=== PATIENT | male | born 1955 | race Caucasian/White ===

== ENCOUNTER 2018-01-30 16:12 | Inpatient (IN) | payer OTHER ==
[2018-01-30] MEDS ORDERED: ZOLPIDEM TARTRATE 10 MG TABLET PO PRN (17:04)
[2018-01-30] MEDS ORDERED: ONDANSETRON 4 MG/2 ML VIAL IV PRN (17:04)
[2018-01-30] MEDS ORDERED: VANCOMYCIN/NS 1 gm 1 GM/250 ML BAG IV SCH (17:15)
[2018-01-30] MEDS ORDERED: D5W 1,000 ML IV SCH (18:00)
[2018-01-30] MEDS ORDERED: METOPROLOL TAR 50 MG TAB PO PRN (18:40)
--- NOTE | 2018-01-30 18:53 | RAD REPORT ---
EXAM DESCRIPTION: RAD - Chest Pa And Lat (2 Views) - 01/30/2018 5:59 pm CLINICAL HISTORY: Soft tissue abscess in the neck, preoperative examination COMPARISON: None. TECHNIQUE: PA and lateral views of the chest were obtained. FINDINGS: The lungs are clear. Heart size is normal and central vasculature is within normal limit s. No pleural effusion or pneumothorax seen. No acute bony finding noted. No aortic abnormality. IMPRESSION: No acute cardiopulmonary process.
[2018-01-30 19:04] VITALS: BMI 30.9
[2018-01-30 19:39] LABS: Absolute Lymphocytes (CBC) 2.1 K/uL (0.7-4.9); Absolute Monocytes 0.9 K/uL (0.1-1.3); Absolute Neutrophil 6.6 K/uL (1.8-8.0); Basophils % 0.4 % (0-1.3); Eosinophils % 0.6 % (0-4.4); Hematocrit 44.4 % (39.6-49.0); Lymphocytes % 21.5 % (15.3-44.8); MCH 30.5 pg (27.0-35.0); MCV 90.4 fL (80-100); MPV 9.4 fL (7.6-11.3); Monocytes % 9.1 % (3.3-12.3); RBC Red Blood Cell Count 4.91 M/uL (4.33-5.43)
[2018-01-30 19:40] LABS: Potassium 3.9 mEq/L (3.6-5.0)
[2018-01-30] MEDS: ACETAMINOPHEN 500 MG TAB PO PRN (19:44)
[2018-01-30 19:56] LABS: Urine Appearance CLEAR; Urine Bilirubin NEGATIVE (NEG); Urine Blood NEGATIVE (NEG); Urine Color YELLOW; Urine Glucose NEGATIVE (NEG); Urine Protein NEGATIVE (NEG); Urine Specific Gravity 1.025 (1.005-1.030); Urine Urobilinogen 0.2 mg/dL (0.2-1.0)
[2018-01-30 20:08] LABS: Urine Microscopic Reflex NO UMIC
[2018-01-30] MEDS: ZOLPIDEM TARTRATE 10 MG TABLET PO SCH (20:11)
[2018-01-30] MEDS: ATORVASTATIN 10 MG TAB PO SCH (20:11)
--- NOTE | 2018-01-30 20:19 | RAD REPORT ---
EXAM DESCRIPTION: US - Extremity Nonvascular Complete - 01/30/2018 5:49 pm CLINICAL HISTORY: Palpable mass left side of the neck COMPARISON: None. FINDINGS: Sonographic evaluation of the palpable mass demonstrates a 5 x 5 x 4 centimeter heterogene ous oval hypoechoic mass. The mass is suspicious for a large lymph node. Doppler evaluation shows lit tle if any internal blood flow. No thickened rim or rind to suggest abscess. IMPRESSION: Large 5 centimeter left neck mass suspicious for an abnormal lymph node. Lymphoma or other malignancy cannot be excluded. A necrotic inflammatory or infectious lymph node wou ld be possible. Abscess is not suspected. Aspiration or biopsy would likely be needed for definitive diagnosis.
[2018-01-31] MEDS: ACETAMINOPHEN 500 MG TAB PO PRN (01:53)
--- NOTE | 2018-01-31 04:49 | HP ---
Date of Admission: 01/30/2018 Entrance Complaint: Painful mass, neck. History Of Present Illness: The patient has had a very long history of a mass in the left lateral po rtion of his neck, which was felt to be a lipoma. A couple weeks ago, he started noticing some enlar gement. Over the past few days, it is considerably enlarged, hot, red, and was seen in the office an d a diagnosis of early abscess and/or cellulitis of the lesion was made and he was admitted for IV an tibiotic therapy. Past History: The patient is in good general health, has Lipitor for his hyperlipidemia, Lopressor f or his hypertension, both of which have been under good control. He also takes Humira on a weekly ba sis. He has done this for a number of years for a psoriatic condition, possible contributing factor to the change in character of the lesion. Social History: Nonsmoker and nondrinker. Family History: Noncontributory. Physical Examination: General: The patient is an alert, orientated male with stable vital signs. Head and Neck: Normocephalic. Pupils are equal, reactive to light and accommodation. Fundi negativ e. Trachea midline. Thyroid not palpable. Large tender mass extruding from the left lateral portio n of the neck, erythematous over the area and into the neck area as well. No adenopathy otherwise. Chest: Clear to P and A. Cardiovascular: PMI midclavicular line. Heart: Sounds normal. Peripheral pulses present and equal bilaterally. Abdomen: No organomegaly. Bowel sounds are present. Extremities: Good tone and movement. Bilateral reflexes physiologic. Rectal: Deferred. Impression: Abscess lesion of neck with surrounding cellulitis, hypertension controlled, hyperlipide rosaura controlled. Plan: The patient will be admitted, placed on IV antibiotics starting with vancomycin. Surgery cons ult will be obtained for the probable procedure in the a.m. HR/MODL Voice ID: [id number]
[2018-01-31 04:54] LABS: Absolute Lymphocytes (CBC) 1.9 K/uL (0.7-4.9); Absolute Monocytes 0.9 K/uL (0.1-1.3); Basophils % 0.4 % (0-1.3); Eosinophils % 0.8 % (0-4.4); Lymphocytes % 21.2 % (15.3-44.8); MCH 30.7 pg (27.0-35.0); MCV 90.5 fL (80-100); MPV 9.5 fL (7.6-11.3); RBC Red Blood Cell Count 4.64 M/uL (4.33-5.43)
--- NOTE | 2018-01-31 05:51 | EKG ---
Test Date: 2018-01-30 Test Time: 17:24:57 [employer]: LYN MEASUREMENT RESULTS: Intervals: Rate: 79 OK: 156 QRSD: 136 QT: 390 QTc: 447 [place]: P: 67 OK: 156 QRS: -22 T: 47 INTERPRETIVE STATEMENTS: Normal sinus rhythm Right bundle branch block Abnormal ECG No previous ECG available for comparison Electronically Signed On 01-31-18 05:50:20 CDT by Dontae Shaver
[2018-01-31] MEDS ORDERED: INFLUENZA VACCINE (for 3y+) 0.5 ML DOSE IMVAC ONE (08:00)
[2018-01-31] MEDS ORDERED: BUPIVACAINE 0.5% PF 10 ML VIAL ONE (10:29)
[2018-01-31] MEDS ORDERED: Ringers Lactate 1,000 ML IV ONE (10:40)
[2018-01-31] MEDS ORDERED: MIDAZOLAM HCL 2 MG/2 ML INJ ONE (11:39)
[2018-01-31] MEDS ORDERED: FENTANYL CITR 100 MCG/2 ML ONE ×2 (11:39→11:58)
[2018-01-31] MEDS ORDERED: LIDOCAINE 2% MPF 5 ML VIAL ONE (11:39)
[2018-01-31] MEDS ORDERED: ROCURONIUM 50 MG/5 ML VIAL IV ONE (11:39)
[2018-01-31] MEDS ORDERED: PROPOFOL 200 MG/20 ML VIAL IV ONE (11:39)
[2018-01-31] MEDS ORDERED: DEXAMETHASONE 10 MG/ML VIAL ONE (11:40)
[2018-01-31] MEDS ORDERED: ONDANSETRON 4 MG/2 ML VIAL ONE (11:40)
--- NOTE | 2018-01-31 11:57 | P.OP ---
Preoperative diagnosis: Infected mass left neck Postoperative diagnosis: same Primary procedure: Excision Infected Sebecous cyst 8x6 cm Anesthesia: general Estimated blood loss: min Specimen: pus and cyst Findings: as above Complications: None Transferred to: Recovery Room Condition: Good
[2018-01-31] MEDS ORDERED: KETOROLAC 30 MG/ML INJ ONE (11:58)
[2018-01-31] MEDS ORDERED: MEPERIDINE HCL 25 MG/0.5 ML IV PRN (11:59)
[2018-01-31] MEDS: VANCOMYCIN 1.75 GM in NA CHLORIDE 0.9% 500 ML IV SCH (12:51)
--- NOTE | 2018-01-31 13:40 | CON ---
Date of Consultation: 01/30/2018 Reason For Consultation: Infected mass, left neck. History Of Present Illness: The patient is a 62-year-old gentleman, who presented to Dr. Leger's [facility] with an infected mass in his left neck. Initially, it was thought to be a lipoma and he has chou d it for many years; however, over the last week, it has become enlarged, red, hot, and painful. He was admitted for IV antibiotic therapy and I was consulted. Please note, the patient does take Humir a for psoriasis. No fever or chills. No weight loss. No sore throat, runny nose, cough, headaches, or dizziness. Review of Systems: Otherwise unremarkable. Past Medical History: Hyperlipidemia, hypertension, psoriasis. Allergies: NONE. Social History: The patient does not smoke or drink. Family History: Noncontributory. Physical Examination: Vital Signs: Stable. He is afebrile. General: He is awake, alert, and oriented x3. Head and Neck: Cranial nerves 2 through 12 are grossly within normal limits. No neck masses. No JV D. Throat clear. Neck is supple. Chest: Clear. Heart: S1, S2. Abdomen: Soft. Skin: On the left neck, the patient has a large approximately 8 x 6 cm area of indurated mass with c entral fluctuance, tender, warm, red, and hot. Laboratory Data: White count is normal. Chemistry is essentially normal. The patient had an ultras ound of the mass, which shows a 5 cm left neck mass suspicious for abnormal lymph node, necrotic, inf lammatory and infectious. Lymphoma will be possible. Assessment: Abscess, cellulitis, and infected mass in the left neck. Recommendations: I discussed the case with Dr. Leger. We will proceed with incision, drainage, an d debridement of the abscess and I will biopsy the base of the mass to see what it is. I suspect it to be an infected sebaceous cyst as the history is consistent with that, although the patient is bein g on Humira, I am concerned for lymphoma. The patient understands risks, benefits, and alternatives and agrees to procedure. /MODL Voice ID: [id number] Report ID: [id number]
[2018-01-31] MEDS: ZOLPIDEM TARTRATE 10 MG TABLET PO SCH (21:06)
[2018-01-31] MEDS: ATORVASTATIN 10 MG TAB PO SCH (21:06)
[2018-01-31 22:22] VITALS: O2SAT 96
--- NOTE | 2018-01-31 22:37 | OP ---
Date of Procedure: 01/31/2018 Surgeon: Doe Mixon MD Preoperative Diagnosis: Infected mass, left neck. Postoperative Diagnosis: Infected mass, left neck. Procedure: Excision of an infected sebaceous cyst, 8 x 6 cm. Estimated Blood Loss: Minimal. Specimen: Pus and infected sebaceous cyst. Findings: As above. Anesthesia: General. Complications: None. Disposition: The patient tolerated the procedure in stable condition and taken to Recovery in good g eneral condition. Procedure In Detail: The patient was brought to the OR and placed in supine position. General anest hesia begun. The patient was placed in the right lateral position, prepped and draped in the usual s terile fashion. Marcaine 0.5% was infiltrated locally. A 15-blade was used to make approximately 8 cm. Subcutaneous tissue divided. It was immediately apparent that this was an infected sebaceous cy st. With careful dissection, most of the wall of the cyst was excised and sent to pathology. Pus th at was encountered, was cultured. Wound irrigated, bleeding controlled with cautery. Wet-to-dry nor mal saline dressing change applied. The patient tolerated the procedure in stable condition and taken to Recove ry in good general condition. /MODL Voice ID: [id number] Report ID: [id number]
[2018-02-01] MEDS: VANCOMYCIN 1.75 GM in NA CHLORIDE 0.9% 500 ML IV SCH ×2 (00:16→12:12)
--- NOTE | 2018-02-01 12:01 | PN ---
Date of Progress Note: 02/01/2018 Subjective: The patient is awake, alert. No complaint. No pain. Vital signs stable and afebrile. Dressing clean, dry, intact. Assessment: Status was excision of infected sebaceous cyst. Recommendation: Continue antibiotics. Check cultures. Adjust antibiotics accordingly. Wound care as ordered. We will discuss with Dr. Leger regarding possibly getting a CAT scan as the induration in that area was significantly around it, to make sure that there was no other process underlying th e infection that the patient had. Once we get the culture, he probably can be discharged home in 24 hours. INGRID/MODCalderon Voice ID: [id number] Report ID: [id number]
[2018-02-01 18:39] VITALS: BP 128/73; TEMP 97.8
--- NOTE | 2018-04-22 14:14 | DS ---
Date of Discharge: 02/01/2018 Hospital Course: The patient was admitted to the hospital on 01/30 for an abscess and cellulitis of the neck. He was admitted to the hospital, placed on IV antibiotics. A surgical procedure was perfo rmed on 01/31, at which time, a grossly infected sebaceous cyst was incised and drained, and the asya ent was placed on antibiotics postoperatively as well. He tolerated the procedure well. His vital s igns remained stable throughout his hospital stay. He has a history of hypertension. He was dischar ged in good condition on 02/01 to follow up with the surgeon for dressing changes and evaluation of w ound. He was discharged in good condition on 02/01. Final Diagnoses: Abscess, neck; sebaceous cyst; cellulitis of the neck secondary to abscess and cyst ; hypertension, controlled; hyperlipidemia, controlled. HR/MODL Voice ID: [id number] Report ID: [id number]
== END 2018-02-01 18:40 | disposition home health service (06) | DRG 607 ==
LOC: OBSVTOIN 16:22 → 4TH 16:22
PROVIDERS: ADMIT Family Medicine; ATTEND Family Medicine
PROC: 0HB4XZZ Excision of Neck Skin, External Approach (ICD-10-PCS; principal; 2018-01-31 11:15)
DX: L72.3 Sebaceous cyst (principal); I10 Essential (primary) hypertension; E78.5 Hyperlipidemia, unspecified
CPT/HCPCS: 36415; 71046; 76881; 80048; 80202; 81003; 85025; 87070; 87075; 87086; 87088; 87205; 88304; 93005; J1100; J2175; J2250; J2405; J3010; J3370